=== PATIENT | male | born 1970 | race Caucasian/White ===

== ENCOUNTER 2017-04-26 12:49 | Emergency (ER) | payer OTHER ==
[2017-04-26 13:06] VITALS: BP 175/91
--- NOTE | 2017-04-26 13:33 | EDM.PDOC ---
ED HPI GENERAL MEDICAL PROBLEM - General Chief Complaint: Respiratory Problem Stated Complaint: SICK, CHEST COLD Time Seen by Provider: 04/26/17 13:02 - History of Present Illness INITIAL COMMENTS - FREE TEXT/NARRATIVE: HISTORY AND PHYSICAL: History of present illness: 47-year-old white male presents with a concern of cough and congestion 1 week he denies fever chills she states she has had some body aches he denies influenza immunization this year he had no shortness of breath or other concern. Review of systems: As per history of present illness and below otherwise all systems reviewed and negative. Past medical history: As per history of present illness and as reviewed below otherwise noncontributory. Surgical history: As per history of present illness and as reviewed below otherwise noncontributory. Social history: No reported history of drug or alcohol abuse. Family history: As per history of present illness and as reviewed below otherwise noncontributory. Physical exam: HEENT: Atraumatic, normocephalic, pupils reactive, negative for conjunctival pallor or scleral icterus, mucous membranes moist, throat clear, neck supple, nontender, trachea midline. Lungs: Coarse bilaterally, breath sounds equal bilaterally, chest nontender. Heart: S1S2, regular, negative for clicks, rubs, or JVD. Abdomen: Soft, nondistended, nontender. Negative for masses or hepatosplenomegaly. Negative for costovertebral tenderness. Pelvis: Stable nontender. Genitourinary: Deferred. Rectal: Deferred. Extremities: Atraumatic, negative for cords or calf pain. Neurovascular unremarkable. Neuro: Awake, alert, oriented. Cranial nerves II through XII unremarkable. Cerebellum unremarkable. Motor and sensory unremarkable throughout. Exam nonfocal. Diagnostics: Influenza screen chest x-ray Therapeutics: Albuterol ipratropium nebulizer Impression: #1 pneumonitis Definitive disposition and diagnosis as appropriate pending reevaluation and review of above. Chest Pain Score (Numeric/FACES): 3 - Related Data Allergies Allergy/AdvReac Type Severity Reaction Status Date / Time No Known Allergies Allergy Verified 02/13/17 12:56 [facility] Home Meds: Home Meds Clopidogrel Bisulfate [Clopidogrel] 75 mg PO DAILY 02/13/17 [History] Lisinopril 5 mg PO DAILY 02/13/17 [History] Losartan [Cozaar] 50 mg PO DAILY 02/13/17 [History] Nitroglycerin 0.4 mg PO ASDIRECTED PRN 02/13/17 [History] atorvaSTATin Calcium [Atorvastatin Calcium] 40 mg PO BEDTIME 02/13/17 [History] Past Medical History Cardiovascular History: Reports: CAD, High Cholesterol, Hypertension, Stents Gastrointestinal History: Reports: Other (See Below) Other Gastrointestinal History: laceration of colon Psychiatric History: Reports: Depression, PTSD - Infectious Disease History Infectious Disease History: Reports: Chicken Pox - Past Surgical History Musculoskeletal Surgical History: Reports: Other (See Below) Other Musculoskeletal Surgeries/Procedures:: tendon repair Social & Family History - Family History Family Medical History: Noncontributory - Tobacco Use Smoking Status *Q: Former Smoker Years of Tobacco use: 20 Used Tobacco, but Quit: Yes Month Tobacco Last Used: 2006 Second Hand Smoke Exposure: Yes - Caffeine Use Caffeine Use: Reports: Coffee - Alcohol Use Days Per Week of Alcohol Use: 0 - Recreational Drug Use Recreational Drug Use: No ED ROS GENERAL - Review of Systems Review Of Systems: ROS reveals no pertinent complaints other than HPI. ED EXAM, GENERAL - Physical Exam Exam: See Below (See dictation) Course - Vital Signs Last Recorded V/S: Last Vital Signs Temp 37.0 C 04/26/17 13:04 Pulse 94 04/26/17 13:04 Resp 18 04/26/17 13:04 BP 175/91 H 04/26/17 13:04 Pulse Ox 92 L 04/26/17 13:04 - Orders/Labs/Meds Orders: Active Orders 24 hr Category Date Time Status RT Aerosol Therapy [RC] ASDIRECTED Care 04/26/17 13:36 Active Chest 2V [CR] Stat Exams 04/26/17 13:10 Ordered Meds: Medications Discontinued Medications Generic Name Dose Route Start Last Admin Trade Name Freq PRN Reason Stop Dose Admin Albuterol/Ipratropium 3 ml 04/26/17 13:35 04/26/17 13:39 Duoneb 3.0-0.5 Mg/3 Ml NEB 04/26/17 13:36 3 ml ONETIME ONE Administration Departure - Departure Time of Disposition: 14:12 Disposition: Home, Self-Care 01 Condition: Good Clinical Impression: Influenza - Discharge Information Forms: ED Department Discharge Additional Instructions: The following information is given to patients seen in the emergency department who are being discharged to home. This information is to outline your options for follow-up care. We provide all patients seen in our emergency department with a follow-up referral. The need for follow-up, as well as the timing and circumstances, are variable depending upon the specifics of your emergency department visit. If you don't have a primary care physician on staff, we will provide you with a referral. We always advise you to contact your personal physician following an emergency department visit to inform them of the circumstance of the visit and for follow-up with them and/or the need for any referrals to a consulting specialist. The emergency department will also refer you to a specialist when appropriate. This referral assures that you have the opportunity for followup care with a specialist. All of these measure are taken in an effort to provide you with optimal care, which includes your followup. Under all circumstances we always encourage you to contact your private physician who remains a resource for coordinating your care. When calling for followup care, please make the office aware that this follow-up is from your recent emergency room visit. If for any reason you are refused follow-up, please contact the [facility] emergency department at and asked to speak to the emergency department charge nurse. Motrin/Tylenol as directed infectious precautions as discussed return as needed as discussed albuterol inhaler as directed - My Orders Last 24 Hours: My Active Orders 04/26/17 13:10 Chest 2V [CR] Stat 04/26/17 13:36 RT Aerosol Therapy [RC] ASDIRECTED - Assessment/Plan Last 24 Hours: My Active Orders 04/26/17 13:10 Chest 2V [CR] Stat 04/26/17 13:36 RT Aerosol Therapy [RC] ASDIRECTED
[2017-04-26] MEDS ORDERED: Albuterol/Ipratropium 3.0-0.5 MG/3 ML Neb Soln NEB ONE (13:35)
--- NOTE | 2017-04-27 18:32 | CR ---
EXAM DATE: 04/26/17 PATIENT'S AGE: 47 Patient: OTIS PORTER Facility: [place], [place] Site . Site : [id number] Study: XRay Chest [id number] 2:13:07 PM Ordering Physician: Zuly Silverman Final Report: INDICATION: Fever. TECHNIQUE: PA and lateral chest x-ray. COMPARISON: Chest x-ray 01/04/2014. FINDINGS: The heart size is normal. Mild thoracic scoliosis. Lungs clear without infiltrate or consolidation. Chest otherwise negative without acute disease. Dictated by Karthik Monroy MD @ Apr 26 2017 2:30PM (Electronic Signature) Report Signed by Proxy. CHRISS
== END 2017-04-26 14:45 | disposition home or self-care (01) ==
LOC: MW.ED 12:49
DX: J18.9 Pneumonia, unspecified organism (principal); J10.1 Influenza due to other identified influenza virus with other respiratory manifestations; I10 Essential (primary) hypertension; I25.10 Atherosclerotic heart disease of native coronary artery without angina pectoris; E78.00 Pure hypercholesterolemia, unspecified; F32.9 Major depressive disorder, single episode, unspecified; Z95.5 Presence of coronary angioplasty implant and graft; Z87.891 Personal history of nicotine dependence; Z79.02 Long term (current) use of antithrombotics/antiplatelets; Z79.899 Other long term (current) drug therapy
CPT/HCPCS: 71046; 71046-26; 87804; 94640; 99283; 99283-25

== ENCOUNTER 2017-07-09 15:18 | Observation (INO) | payer OTHER ==
[2017-07-09] MEDS ORDERED: Sodium Chloride 0.9% 1,000 ML IV ONE (15:20)
[2017-07-09] MEDS ORDERED: Morphine 4 MG/ML Syringe IVPUSH ONE (15:29)
--- NOTE | 2017-07-09 15:29 | EDM.PDOC ---
ED HPI GENERAL MEDICAL PROBLEM - General Chief Complaint: Chest Pain Stated Complaint: CHEST PAIN Time Seen by Provider: 07/09/17 15:20 Source of Information: Reports: Patient History Limitations: Reports: No Limitations - History of Present Illness INITIAL COMMENTS - FREE TEXT/NARRATIVE: HISTORY AND PHYSICAL: History of present illness: Patient is a 47-year-old male who presents to the emergency room today with complaints of chest pain that radiates in between his shoulder blades since last evening. States yesterday he noted he was having pain in between his shoulder blades but continued with his normal activities. This morning he woke up with a headache which bothered him enough to present to the walk-in clinic. He believes that his headache is due to his blood pressure being elevated. Upon being interviewed by the provider at the walk-in clinic he did mention he was having chest pain. 3 sublingual sprays of nitroglycerin were given for a blood pressure of 170/110, rating his pain at a 7 out of 10. EMS was called and patient was transferred to our emergency room. Pain is currently a 2 out of 10. He does have a history of stents which were placed last year. Has not seen his employment agency manager in approximately 6 months. Reports these been going well. He denies any fever, chills, shortness of breath , abdominal pain, nausea, vomiting, diarrhea or constipation. History of hypertension, coronary artery disease, former smoker (quit in 2007). + Family history of heart disease. Review of systems: As per history of present illness and below otherwise all systems reviewed and negative. Past medical history: As per history of present illness and as reviewed below otherwise noncontributory. Surgical history: As per history of present illness and as reviewed below otherwise noncontributory. Social history: No reported history of drug or alcohol abuse. Family history: As per history of present illness and as reviewed below otherwise noncontributory. Physical exam: General: Well-developed and well-nourished 47-year-old male. Alert and oriented. Nontoxic appearing and in no acute distress. HEENT: Atraumatic, normocephalic, pupils equal and reactive bilaterally, negative for conjunctival pallor or scleral icterus, mucous membranes moist, throat clear, neck supple, nontender, trachea midline. No drooling or trismus noted. No meningeal signs Lungs: Clear to auscultation, breath sounds equal bilaterally, chest nontender. Heart: S1S2, regular rate and rhythm without overt murmur Abdomen: Soft, nondistended, nontender. Large midline scar noted to the abdomen. Negative for masses or hepatosplenomegaly. Negative for costovertebral tenderness. Pelvis: Stable nontender. Genitourinary: Deferred. Rectal: Deferred. Skin: Intact, warm, dry. No lesions or rashes noted. Extremities: Atraumatic, negative for cords or calf pain. Neurovascular unremarkable. Neuro: Awake, alert, oriented. Cranial nerves II through XII unremarkable. Cerebellum unremarkable. Motor and sensory unremarkable throughout. Exam nonfocal. Notes: Prior to the patient receiving the morphine he states he is currently pain- free. We'll place the morphine on hold at this time. Vital signs are stable. Waiting for lab results at this time. 1630: Lab results are within normal limits. X-ray shows no infiltration or sign of pneumonia. This information was shared with the patient. He continues to be pain-free. Vital signs are stable. Offer him admission at this time which she is agreeable to. Dr. Sandoval was paged at this time. 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 Onset Date: 07/08/17 Duration: Day(s): Location: Reports: Chest chest Pain Score (Numeric/FACES): 1 - Related Data Allergies Allergy/AdvReac Type Severity Reaction Status Date / Time No Known Allergies Allergy Verified 07/09/17 15:23 Home Meds: Home Meds Clopidogrel Bisulfate [Clopidogrel] 75 mg PO DAILY 02/13/17 [History] Lisinopril 5 mg PO DAILY 02/13/17 [History] Nitroglycerin 0.4 mg PO ASDIRECTED PRN 02/13/17 [History] atorvaSTATin Calcium [Atorvastatin Calcium] 40 mg PO BEDTIME 02/13/17 [History] Past Medical History Cardiovascular History: Reports: CAD, High Cholesterol, Hypertension, Stents Gastrointestinal History: Reports: Other (See Below) Other Gastrointestinal History: laceration of colon Psychiatric History: Reports: Depression, PTSD - Infectious Disease History Infectious Disease History: Reports: Chicken Pox - Past Surgical History Musculoskeletal Surgical History: Reports: Other (See Below) Other Musculoskeletal Surgeries/Procedures:: tendon repair Social & Family History - Family History Family Medical History: Noncontributory - Tobacco Use Smoking Status *Q: Former Smoker Years of Tobacco use: 20 Used Tobacco, but Quit: Yes Month/Year Tobacco Last Used: 2006 Second Hand Smoke Exposure: Yes - Caffeine Use Caffeine Use: Reports: Coffee - Alcohol Use Days Per Week of Alcohol Use: 0 - Recreational Drug Use Recreational Drug Use: No ED ROS GENERAL - Review of Systems Review Of Systems: ROS reveals no pertinent complaints other than HPI. ED EXAM, GENERAL - Physical Exam Exam: See Below (See dictation) Course - Vital Signs Last Recorded V/S: Last Vital Signs Temp 98.0 F 07/09/17 15:21 Pulse 76 07/09/17 15:21 Resp 16 07/09/17 15:21 BP 144/96 H 07/09/17 15:21 Pulse Ox 95 07/09/17 15:21 - Orders/Labs/Meds Orders: Active Orders 24 hr Category Date Time Status EKG Documentation Completion [RC] STAT Care 07/09/17 15:20 Active Sodium Chloride 0.9% [Normal Saline] 1,000 ml Med 07/09/17 15:20 Active IV STAT Medication Orders Sodium Chloride (Normal Saline) 1,000 mls @ 125 mls/hr IV STAT ONE Stop: 07/09/17 23:19 Last Admin: 07/09/17 15:31 Dose: 125 mls/hr Labs: Laboratory Tests 07/09/17 07/09/17 07/09/17 Range/Units 15:30 15:30 15:30 WBC 3.97 L (4.0-11.0) K/uL RBC 4.80 (4.50-5.90) M/uL Hgb 14.2 (13.0-17.0) g/dL Hct 40.2 (38.0-50.0) % MCV 83.8 (80.0-98.0) fL MCH 29.6 (27.0-32.0) pg MCHC 35.3 (31.0-37.0) g/dL RDW Std Deviation 38.1 (28.0-62.0) fl RDW Coeff of Blaise 13 (11.0-15.0) % Plt Count 178 (150-400) K/uL MPV 8.30 (7.40-12.00) fL Neut % (Auto) 48.3 (48.0-80.0) % Lymph % (Auto) 38.3 (16.0-40.0) % [place] % (Auto) 10.6 (0.0-15.0) % Eos % (Auto) 2.3 (0.0-7.0) % Baso % (Auto) 0.5 (0.0-1.5) % Neut # (Auto) 1.9 (1.4-5.7) K/uL Lymph # (Auto) 1.5 (0.6-2.4) K/uL [place] # (Auto) 0.4 (0.0-0.8) K/uL Eos # (Auto) 0.1 (0.0-0.7) K/uL Baso # (Auto) 0.0 (0.0-0.1) K/uL Nucleated RBC % 0.0 /100WBC Nucleated RBCs # 0 K/uL INR 0.99 Sodium 141 (136-148) mmol/L Potassium 3.7 (3.5-5.1) mmol/L Chloride 105 (98-107) mmol/L Carbon Dioxide 24.2 (21.0-32.0) mmol/L BUN 16 (7.0-18.0) mg/dL Creatinine 1.1 (0.8-1.3) mg/dL Est Cr Clr Drug Dosing 87.47 mL/min Estimated GFR (MDRD) > 60.0 ml/min Glucose 93 (74-106) mg/dL Calcium 9.3 (8.5-10.1) mg/dL Total Bilirubin 0.5 (0.2-1.0) mg/dL AST 20 (15-37) IU/L ALT 34 (14-63) IU/L Alkaline Phosphatase 51 (46-116) U/L Troponin I < 0.050 (0.000-0.056) ng/mL Total Protein 7.6 (6.4-8.2) g/dL Albumin 4.2 (3.4-5.0) g/dL Globulin 3.4 (2.0-3.5) g/dL Albumin/Globulin Ratio 1.2 L (1.3-2.8) Meds: Medications Generic Name Dose Route Start Last Admin Trade Name Garlandq PRN Reason Stop Dose Admin Sodium Chloride 1,000 mls @ 125 mls/hr 07/09/17 15:20 07/09/17 15:31 Normal Saline IV 07/09/17 23:19 125 mls/hr STAT ONE Administration Discontinued Medications Generic Name Dose Route Start Last Admin Trade Name Garlandq PRN Reason Stop Dose Admin Morphine Sulfate 2 mg 07/09/17 15:29 07/09/17 15:36 Morphine IVPUSH 07/09/17 15:30 Not Given ONETIME ONE Departure - Departure Time of Disposition: 16:43 Disposition: Refer to Observation Clinical Impression: Chest pain, rule out acute myocardial infarction Referrals: PCP,Unknown [Primary Care Provider] - Forms: ED Department Discharge - My Orders Last 24 Hours: My Active Orders 07/09/17 15:20 EKG Documentation Completion [RC] STAT Sodium Chloride 0.9% [Normal Saline] 1,000 ml IV STAT - Assessment/Plan Last 24 Hours: My Active Orders 07/09/17 15:20 EKG Documentation Completion [RC] STAT Sodium Chloride 0.9% [Normal Saline] 1,000 ml IV STAT
--- NOTE | 2017-07-09 15:52 | CR ---
EXAMINATION: Portable chest radiograph. HISTORY: Chest pain. COMPARISON: 04/26/2017. FINDINGS: The trachea is midline. The cardiomediastinal silhouette is within normal limits. No pulmonary infilt rates, effusions or pneumothorax. Osseous structures appear unremarkable. IMPRESSION: No acute cardiopulmonary process.
[2017-07-09 16:18] LABS: CHLORIDE,CL 105 mmol/L (98-107); SODIUM,NA 141 mmol/L (136-148)
[2017-07-09] MEDS ORDERED: Ondansetron 4 MG Tab.DIS PO PRN (17:39)
[2017-07-09] MEDS ORDERED: Albuterol/Ipratropium 3.0-0.5 MG/3 ML Neb Soln NEB PRN (17:39)
[2017-07-09] MEDS ORDERED: Acetaminophen 325 MG Tab PO PRN (17:39)
--- NOTE | 2017-07-09 17:39 | PCM.HP ---
H&P History of Present Illness - General Date of Service: 07/09/17 Admit Problem/Dx: Admission Diagnosis/Problem Admission Diagnosis/Problem Chest pain Source of Information: Patient History Limitations: Reports: No Limitations - History of Present Illness Initial Comments - Free Text/Narative: 39-year-old male with a history of hypertension, dyslipidemia and coronary artery disease with stenting that is being admitted with chest pain. Patient began to notice left-sided chest pain that was radiating to in between the shoulder blades last evening. Overnight he developed a headache and chest pain continued. He presented to his PCP this morning with the same chief complaints and he was given 3 sprays of nitroglycerin and 4 tabs of baby aspirin and sent to the ER. Initially his chest pain was 7 out of 10 and while in the ER his chest pain improved to 2 out of 10. Patient believes his headache is due to high blood pressure. He does take lisinopril daily for his blood pressure and has been compliant with these medications. His blood pressure while in the clinic of his PCP was 170/110. His blood pressure when he was admitted to the floor was 144/96. Patient did have 3 stents placed last year in [place] by Dr. Aldana, general office dispatcher. The patient last saw him 6 months ago and was told everything was going well. Patient is supposed to have a follow-up appointment with him soon. Patient does have nitroglycerin available to him and has had to use it once and having the stents placed. He has not had any dizziness, palpitations, shortness of breath, abdominal pain, nausea, vomiting, constipation, diarrhea, peripheral edema or fever. There is a family history of heart disease. Patient is a former smoker and quit back in 2007. ER course: Blood pressure in the ER was 144/96. CBC, CMP, chest x-ray and initial troponin were negative. Patient was started on IV fluids. He did not require any additional nitroglycerin or morphine while in the ER. chest Pain Score (Numeric/FACES): 1 - Related Data Allergies/Adverse Reactions: Allergies Allergy/AdvReac Type Severity Reaction Status Date / Time No Known Allergies Allergy Verified 07/09/17 15:23 Home Medications: Home Meds Clopidogrel Bisulfate [Clopidogrel] 75 mg PO DAILY 02/13/17 [History] Lisinopril 5 mg PO DAILY 02/13/17 [History] Nitroglycerin 0.4 mg PO ASDIRECTED PRN 02/13/17 [History] atorvaSTATin Calcium [Atorvastatin Calcium] 40 mg PO BEDTIME 02/13/17 [History] Past Medical History HEENT History: Reports: Impaired Vision Cardiovascular History: Reports: CAD, High Cholesterol, Hypertension, Stents Gastrointestinal History: Reports: Other (See Below) Other Gastrointestinal History: laceration of colon Psychiatric History: Reports: Depression, PTSD - Infectious Disease History Infectious Disease History: Reports: Chicken Pox - Past Surgical History Cardiovascular Surgical History: Reports: Coronary Artery Stent Musculoskeletal Surgical History: Reports: Other (See Below) Other Musculoskeletal Surgeries/Procedures:: tendon repair Social & Family History - Family History Family Medical History: Noncontributory - Tobacco Use Smoking Status *Q: Former Smoker Years of Tobacco use: 20 Used Tobacco, but Quit: Yes Month/Year Tobacco Last Used: 11/2007 Second Hand Smoke Exposure: No - Caffeine Use Caffeine Use: Reports: Coffee, Energy Drinks, Soda, Tea - Alcohol Use Days Per Week of Alcohol Use: 0 Date of Last Drink: 04/13/17 Time of Last Drink: 09:00 - Recreational Drug Use Recreational Drug Use: No H&P Review of Systems - Review of Systems: Review Of Systems: See Below General: Reports: No Symptoms HEENT: Reports: Headaches Pulmonary: Reports: No Symptoms Cardiovascular: Reports: Chest Pain Gastrointestinal: Reports: No Symptoms Genitourinary: Reports: No Symptoms Musculoskeletal: Reports: No Symptoms Skin: Reports: No Symptoms Psychiatric: Reports: No Symptoms Neurological: Reports: No Symptoms Hematologic/Lymphatic: Reports: No Symptoms Immunologic: Reports: No Symptoms Exam - Exam Exam: See Below - Vital Signs Vital Signs: Last Vital Signs Temp 98.4 F 07/09/17 17:14 Pulse 75 07/09/17 17:14 Resp 16 07/09/17 17:14 BP 135/84 07/09/17 17:14 Pulse Ox 99 07/09/17 17:14 Weight: 224 lb 8 oz - Exam General: Alert, Oriented, Cooperative HEENT: Conjunctiva Clear, EOMI, Hearing Intact, Mucosa Moist & Conger, Nares Patent, Normal Nasal Septum Neck: Supple, Trachea Midline, 2 Lungs: Clear to Auscultation, Normal Respiratory Effort Cardiovascular: Regular Rate, Regular Rhythm GI/Abdominal Exam: Normal Bowel Sounds, Soft, Non-Tender, No Organomegaly, No Distention, No Abnormal Bruit, No Mass, Pelvis Stable Extremities: Normal Inspection, Normal Range of Motion, Non-Tender, No Pedal Edema, Normal Capillary Refill Peripheral Pulses: 2+: Radial (L), Radial (R), Posterior Tibial (L), Posterior Tibial (R) Skin: Warm, Dry, Intact Neuro Extensive - Mental Status: Alert, Oriented x3, Normal Mood/Affect, Normal Cognition Psychiatric: Alert, Normal Affect, Normal Mood - Patient Data Lab Results Last 24 hrs: Laboratory Results - last 24 hr 07/09/17 07/09/17 07/09/17 Range/Units 15:30 15:30 15:30 WBC 3.97 L (4.0-11.0) K/uL RBC 4.80 (4.50-5.90) M/uL Hgb 14.2 (13.0-17.0) g/dL Hct 40.2 (38.0-50.0) % MCV 83.8 (80.0-98.0) fL MCH 29.6 (27.0-32.0) pg MCHC 35.3 (31.0-37.0) g/dL RDW Std Deviation 38.1 (28.0-62.0) fl RDW Coeff of Blaise 13 (11.0-15.0) % Plt Count 178 (150-400) K/uL MPV 8.30 (7.40-12.00) fL Neut % (Auto) 48.3 (48.0-80.0) % Lymph % (Auto) 38.3 (16.0-40.0) % Hand % (Auto) 10.6 (0.0-15.0) % Eos % (Auto) 2.3 (0.0-7.0) % Baso % (Auto) 0.5 (0.0-1.5) % Neut # (Auto) 1.9 (1.4-5.7) K/uL Lymph # (Auto) 1.5 (0.6-2.4) K/uL Hand # (Auto) 0.4 (0.0-0.8) K/uL Eos # (Auto) 0.1 (0.0-0.7) K/uL Baso # (Auto) 0.0 (0.0-0.1) K/uL Nucleated RBC % 0.0 /100WBC Nucleated RBCs # 0 K/uL INR 0.99 Sodium 141 (136-148) mmol/L Potassium 3.7 (3.5-5.1) mmol/L Chloride 105 (98-107) mmol/L Carbon Dioxide 24.2 (21.0-32.0) mmol/L BUN 16 (7.0-18.0) mg/dL Creatinine 1.1 (0.8-1.3) mg/dL Est Cr Clr Drug Dosing 87.47 mL/min Estimated GFR (MDRD) > 60.0 ml/min Glucose 93 (74-106) mg/dL Calcium 9.3 (8.5-10.1) mg/dL Total Bilirubin 0.5 (0.2-1.0) mg/dL AST 20 (15-37) IU/L ALT 34 (14-63) IU/L Alkaline Phosphatase 51 (46-116) U/L Troponin I < 0.050 (0.000-0.056) ng/mL Total Protein 7.6 (6.4-8.2) g/dL Albumin 4.2 (3.4-5.0) g/dL Globulin 3.4 (2.0-3.5) g/dL Albumin/Globulin Ratio 1.2 L (1.3-2.8) Result Diagrams: 07/09/17 15:30 07/09/17 15:30 - Problem List (1) Chest pain SNOMED Code(s): 68298146 ICD Code: R07.9 - CHEST PAIN, UNSPECIFIED Status: Acute Current Visit: No Onset Date: 01/04/14 (2) Hypertension SNOMED Code(s): 37965204 ICD Code: I10 - ESSENTIAL (PRIMARY) HYPERTENSION Status: Acute Current Visit: No Problem List Initiated/Reviewed/Updated: Yes Orders Last 24hrs: Active Orders 24 hr Category Date Time Status Admission Status [Patient Status] [ADT] Stat ADT 07/09/17 16:43 Active EKG Documentation Completion [RC] STAT Care 07/09/17 15:20 Active Sodium Chloride 0.9% [Normal Saline] 1,000 ml Med 07/09/17 15:20 Active IV STAT Medication Orders Sodium Chloride (Normal Saline) 1,000 mls @ 125 mls/hr IV STAT ONE Stop: 05/03/18 23:19 Last Admin: 07/09/17 15:31 Dose: 125 mls/hr Assessment/Plan Comment:: 47-year-old male admitted with chest pain. #1. Chest pain: -Initial troponin was negative. Will trend troponins every 6 hours. -Patient will be placed on telemetry. -Lipid panel ordered for the morning. -Magnesium is pending and we will correct if indicated. #2. Hypertension: -Blood pressure when admitted to the hospital was 144/96. -Resume home medication of Lisinopril DVT prophylaxis: SCDs and heparin. Disposition: Likely tomorrow if chest pain workup is negative.
[2017-07-09] MEDS: Heparin Sodium 5,000 Units/ML Vial SUBCUT SCH (18:33)
[2017-07-09] MEDS ORDERED: atorvaSTATin 40 MG Tab PO SCH (21:00)
[2017-07-10 04:16] LABS: CHLORIDE,CL 108 mmol/L (98-107); SODIUM,NA 142 mmol/L (136-148)
[2017-07-10] MEDS: Heparin Sodium 5,000 Units/ML Vial SUBCUT SCH (04:49)
[2017-07-10 08:20] VITALS: BP 153/87
[2017-07-10] MEDS ORDERED: Lisinopril 5 MG Tab PO SCH (09:00)
--- NOTE | 2017-07-11 11:55 | PCM.DCSUM1 ---
Discharge Summary - Hospital Course Free Text/Narrative:: Admission diagnosis: #1. Chest pain #2. Hypertension Discharge diagnosis: #1. Chest pain, resolved #2. Hypertension, improved #3. Dyslipidemia #4. Bigeminy 47-year-old male that was admitted with chest pain and hypertension. Serial troponins were negative. Chest x-ray was unremarkable. Patient was placed on telemetry which showed normal sinus rhythm with a heart rate between 60-70 bpm. Patient did have a few episodes of bigeminy but no chest discomfort with this. Patient did not require any additional morphine or nitroglycerin for chest pain while admitted. CBC, CMP and magnesium were normal. Hemoglobin A1c was 5.6%. Lipid panel showed a cholesterol level of 251. Triglycerides were normal. Patient was restarted on his home medications of lisinopril and Lipitor. At the time of discharge, the patient was not having any chest pain. He was tolerating oral intake, voiding appropriately and ambulating without assistance. - Discharge Data Discharge Date: 07/10/17 Discharge Disposition: Home, Self-Care 01 Condition: Stable - Discharge Diagnosis/Problem(s) (1) Chest pain SNOMED Code(s): 53698579 ICD Code: R07.9 - CHEST PAIN, UNSPECIFIED Status: Acute Onset Date: 01/04 (2) Hypertension SNOMED Code(s): 12247781 ICD Code: I10 - ESSENTIAL (PRIMARY) HYPERTENSION Status: Acute - Patient Instructions Diet: Heart Healthy Diet Activity: As Tolerated Driving: May Drive Today Showering/Bathing: May Shower Notify Provider of: Fever, Increased Pain, Nausea and/or Vomiting - Discharge Plan Prescriptions/Med Rec: Lisinopril 10 mg PO DAILY #30 tablet Nitroglycerin 0.4 mg PO ASDIRECTED PRN #30 tab.subl PRN Reason: Chest Pain Home Medications: Home Meds Clopidogrel Bisulfate [Clopidogrel] 75 mg PO DAILY 02/13/17 [History] atorvaSTATin Calcium [Atorvastatin Calcium] 40 mg PO BEDTIME 02/13/17 [History] Lisinopril 10 mg PO DAILY #30 tablet 07/10/17 [Rx] Nitroglycerin 0.4 mg PO ASDIRECTED PRN #30 tab.subl 07/10/17 [Rx] Patient Handouts: Nonspecific Chest Pain, [id number], Lisinopril tablets, Nitroglycerin sublingual tablets Referrals: Gómez Nicholas MD [Physician] - 07/17/17 9:00 am - Discharge Summary/Plan Comment DC Time >30 min.: No Discharge Summary/Plan Comment: Admission diagnosis: #1. Chest pain #2. Hypertension Discharge diagnosis: #1. Chest pain, resolved #2. Hypertension, improved #3. Dyslipidemia #4. Bigeminy 47-year-old male that was admitted with chest pain and hypertension. Serial troponins were negative. Chest x-ray was unremarkable. Patient was placed on telemetry which showed normal sinus rhythm with a heart rate between 60-70 bpm. Patient did have a few episodes of bigeminy but no chest discomfort with this. Patient did not require any additional morphine or nitroglycerin for chest pain while admitted. CBC, CMP and magnesium were normal. Hemoglobin A1c was 5.6%. Lipid panel showed a cholesterol level of 251. Triglycerides were normal. Patient was restarted on his home medications of lisinopril and Crestor. At the time of discharge, the patient was not having any chest pain. He was tolerating oral intake, voiding appropriately and ambulating without assistance. Discharge plan: -Lisinopril was increased to 10 mg daily. 30 tabs given, 0 refills. -Continue Lipitor and encouraged healthy eating and active daily lifestyle. -Patient has a follow-up appointment with Dr. Arora, respiratory care practitioner, on July 17, 2017. -Patient will call the [place] and set up an appointment with them for follow-up after being discharged. - Patient Data Vitals - Most Recent: Last Vital Signs Temp 97.1 F 07/10/17 08:00 Pulse 69 07/10/17 08:00 Resp 18 07/10/17 08:00 BP 153/87 H 07/10/17 08:20 Pulse Ox 99 07/10/17 08:00 Weight - Most Recent: 224 lb 8 oz Med Orders - Current: Current Medications Discontinued Medications Acetaminophen (Tylenol) 650 mg PO Q4H PRN PRN Reason: Pain (Mild 1-3)/fever Albuterol/Ipratropium (Duoneb 3.0-0.5 Mg/3 Ml) 3 ml NEB Q4HRRT PRN PRN Reason: Shortness Of Breath/wheezing Atorvastatin Calcium (Lipitor) 40 mg PO BEDTIME NEHEMIAS Last Admin: 07/09/17 21:11 Dose: 40 mg Heparin Sodium (Porcine) (Heparin Sodium) 5,000 units SUBCUT Q12H [facility] Last Admin: 07/10/17 04:49 Dose: 5,000 units Sodium Chloride (Normal Saline) 1,000 mls @ 125 mls/hr IV STAT ONE Stop: 07/09/17 23:19 Last Admin: 07/09/17 15:31 Dose: 125 mls/hr Lisinopril (Prinivil) 5 mg PO DAILY [facility] Last Admin: 07/10/17 08:20 Dose: 5 mg Morphine Sulfate (Morphine) 2 mg IVPUSH ONETIME ONE Stop: 07/09/17 15:30 Last Admin: 07/09/17 15:36 Dose: Not Given Ondansetron HCl (Zofran Odt) 4 mg PO Q4H PRN PRN Reason: nausea, able to take PO
== END 2017-07-10 11:36 | disposition home or self-care (01) ==
LOC: MW.ED 15:18 → MW.MS 16:43
PROVIDERS: ADMIT Internal Medicine; ATTEND Internal Medicine
DX: R07.9 Chest pain, unspecified (principal); I10 Essential (primary) hypertension; E78.5 Hyperlipidemia, unspecified; R00.8 Other abnormalities of heart beat; I25.10 Atherosclerotic heart disease of native coronary artery without angina pectoris; E78.00 Pure hypercholesterolemia, unspecified; F32.9 Major depressive disorder, single episode, unspecified; F43.10 Post-traumatic stress disorder, unspecified; Z87.891 Personal history of nicotine dependence; Z79.899 Other long term (current) drug therapy; Z95.5 Presence of coronary angioplasty implant and graft
CPT/HCPCS: 36415; 71045; 80048; 80053; 80061; 83036; 83735; 84484; 85025; 85610; 93005; 96360; 99285; A9270; J1644; J7040; 96361; 96372; G0378